=== PATIENT | female | born 1985 | race Caucasian/White ===

== ENCOUNTER 2018-10-20 18:04 | Emergency (ER) | payer SELFPAY ==
[~2018-10-20] VITALS: Ht 167.6 cm; Wt 70.0 kg
[2018-10-20 18:08] VITALS: BP 128/78; PULSE 105; RESP 20; Ht 167.6 cm; Wt 70.0 kg
[2018-10-20] MEDS ORDERED: KETOROLAC 30 MG INJ IM STA (19:15)
[2018-10-20] MEDS ORDERED: ONDANSETRON (ODT) 4 MG TAB ODT STA (19:15)
[2018-10-20] MEDS ORDERED: LIDOCAINE 1% (MDV) 20 ML INJ SC ONE (19:30)
[2018-10-20] MEDS ORDERED: HYDROCODONE/APAP (5/325) TAB PO ONE (19:30)
[2018-10-20] MEDS ORDERED: CEFTRIAXONE 1 GM INJ IM ONE (19:30)
[2018-10-20] MEDS ORDERED: HYDR-4011 PO (19:59)
[2018-10-20] MEDS ORDERED: IBUP-1542 PO (19:59)
[2018-10-20] MEDS ORDERED: CEPH-443 PO (19:59)
--- NOTE | 2018-10-20 20:02 | ERD ---
ER Documentation Chief Complaint Chief Complaint Complains of severe dental pain with dental abscess x 3 days HPI 33-year-old female presents with left facial swelling for last 3 days. She did have a wisdom tooth extraction x1 in that area 3 days ago. She subsequently flew here from [place]. She flies back to [place] and has follow-up in 4 days. She denies measured fevers although she did feel sweats. She denies any difficulty breathing, difficulty swallowing. ROS All systems reviewed and are negative except as per history of present illness. Medications Home Meds Active Scripts Cephalexin* (Keflex*) 500 Mg Capsule, 500 MG PO QID for 10 Days, CAP Prov:ALYSSA PEÑA MD 10/20/18 Hydrocodone/Acetaminophen ([place] 5-325 Tablet) 1 Each Tablet, 1 TAB PO Q6H PRN for PAIN, #12 TAB Prov:ALYSSA PEÑA MD 10/20/18 Ibuprofen* (Motrin*) 600 Mg Tab, 600 MG PO Q6, #20 TAB Prov:ALYSSA PEÑA MD 10/20/18 Allergies Allergies: Coded Allergies: No Known Allergy (Unverified , 10/20/18) PMhx/Soc Medical and Surgical Hx: pt denies Medical Hx, pt denies Surgical Hx Hx Alcohol Use: No Hx Substance Use: No Hx Tobacco Use: Yes Smoking Status: Current every day smoker FmHx Family History: No diabetes, No coronary disease, No other Physical Exam Vitals Vital Signs Date Temp Pulse Resp B/P (MAP) Pulse Ox O2 O2 Flow FiO2 Time Delivery Rate 10/20/18 97.5 105 20 128/78 99 18:08 (95) Physical Exam Const: No acute distress Head: Atraumatic Eyes: Normal Conjunctiva ENT: Normal External Ears, Nose and Mouth. Left facial swelling below the area of extraction. Airway patent. No warmth, or erythema. No fluctuance. Neck: Full range of motion. No meningismus. Resp: Clear to auscultation bilaterally Cardio: Regular rate and rhythm, no murmurs Abd: Soft, non tender, non distended. Normal bowel sounds Skin: No petechiae or rashes Back: No midline or flank tenderness Ext: No cyanosis, or edema Neur: Awake and alert Psych: Normal Mood and Affect Results 24 hrs Laboratory Tests Test 10/20/18 19:44 POC Beta HCG, Qualitative NEGATIVE Current Medications Medications Dose Sig/Renetta Start Time Status Last (Trade) Ordered Route PRN Stop Time Admin Dose Reason Admin 1 tab ONCE ONCE 10/20/18 DC 10/20/18 Acetaminophen PO 19:30 19:26 / 10/20/18 19:31 Hydrocodone Bitart ([place] (5/325)) Ondansetron 8 mg ONCE STAT 10/20/18 DC 10/20/18 HCl (Zofran ODT 19:15 19:26 Odt) 10/20/18 19:16 Ceftriaxone 1 gm ONCE ONCE 10/20/18 DC 10/20/18 Sodium IM 19:30 19:28 (Rocephin) 10/20/18 19:31 Lidocaine 20 ml ONCE ONCE 10/20/18 DC 10/20/18 (Xylocaine SC 19:30 19:28 1% (Mdv) 20 10/20/18 19:31 ml) Ketorolac 30 mg ONCE STAT 10/20/18 DC Tromethamine IM 19:15 (Toradol) 10/20/18 19:16 Procedures/MDM Patient presents with postoperative swelling and pain due to her dental extraction 3 days ago. This may be normal postoperative swelling although patient is in considerable pain. Patient was offered pain medicine by her dentist but she declined that she is never taken pain medicine. She is concerned about infection. We will treat empirically with Rocephin 1 g IM, Keflex, [place], ibuprofen, dental follow-up and return precautions for shortness of breath, difficulty following, new worsening symptoms. The patient was stable with no new complaints during the ER course. Clinically, there is no current evidence to suggest meningitis, sepsis, acute abdomen, pneumonia, stroke, acute coronary syndrome, pulmonary embolism, aortic dissection or any other emergent condition appearing to require further evaluation or hospitalization. Patient counseled regarding my diagnostic impression and care plan. Prior to discharge all questions answered. Pt agrees with treatment plan and understands strict return precautions. Pt is instructed to follow up with primary care provider within 24-48 hours. Precautionary instructions provided including instructions to return to the ER if not improving or for any worsening or changing symptoms or concerns. Cures review negative Departure Diagnosis: Primary Impression: Pain, dental Condition: Stable Patient Instructions: Dental Pain Additional Instructions: We will treat for infection. Uncertain cause of swelling. Recheck for fevers, worsening redness, new worsening symptoms. See dentist or oral surgeon for foll ow-up. ALYSSA PEÑA MD Oct 20, 2018 20:02
== END 2018-10-20 20:10 | disposition left against medical advice (07) ==
LOC: FTE 18:04
DX: K08.89 Other specified disorders of teeth and supporting structures (principal); F17.210 Nicotine dependence, cigarettes, uncomplicated
CPT/HCPCS: 81025; 96372; 99284; J0696; J1885